=== PATIENT | male | born 1990 | race African-American/Black ===

== ENCOUNTER 2018-07-24 20:32 | Emergency (ER) | payer MEDICAID, OTHER ==
[~2018-07-24] VITALS: Ht 182.9 cm; Wt 81.6 kg
--- NOTE | 2018-07-24 20:40 | NUR ---
BIBRA78/[employer] IN CUSTODY, NEEDS OTB. NOTED HEMATOMA ABOVE R EYE. PATIENT ETOH, -LOC. AOX4. VERBALLY ABUSIVE TOWARDS STAFF. PT PLACED IN BED BY FIRE AND [employer]. PT PLACED IN CUFFS BY [employer]. PT AGITATED AND TRYING TO GET OUT OF BED AND CUFFS. [employer] AT BEDSIDE. AWAITING MD WRIGHT.
--- NOTE | 2018-07-24 20:59 | NUR ---
LEFT FOR CT SCAN.
--- NOTE | 2018-07-24 21:45 | NUR ---
PT RETURNED FROM CT SCAN
--- NOTE | 2018-07-24 22:00 | NUR ---
[facility] NOTIFIED STAFF THAT THEY WILL NOT BOOK PT AND WILL LEAVE PT IN OUR CARE. NOTIFIED MD AND CHARGE NURSE. PT PLACED IN LEFT ARM RESTRAINT AND IS RESTING IN BED.
[2018-07-24] MEDS ORDERED: TETRACAINE HCL/PF 0.5% UD 2 ML BOTTLE ONE (22:07)
--- NOTE | 2018-07-24 22:09 | NUR ---
CALLED [facility] SPOKE WITH HUI. PER HUI THERE IS ONLY PEDS AND OB BEDS AT [facility].
--- NOTE | 2018-07-24 22:11 | NUR ---
called [facility] transfer line [phone] - [phone]
--- NOTE | 2018-07-24 22:14 | NUR ---
Called [facility] and spoke to Penny and was told to fax over clinicals and she would present the case to the trauma surgeon and hopefully he would accept this pt. Fax#: [phone] Call back: [phone] ( After 2329 Penny is leaving home, call the nursing branch logistics supervisor)
--- NOTE | 2018-07-24 22:20 | NUR ---
CALLED [facility] ER SPOKE WITH MILLER, SHE STATED THEY DONT HAVE OPHTHAMOLOGY SERVICES AT THE MOMENT.
--- NOTE | 2018-07-24 22:26 | NUR ---
[facility] transfer line called - case presented - spoke to Anitra FARIA; the ER is at capacity cannot accomodate any [facility] level of care transfer
[2018-07-24] MEDS ORDERED: TETRACAINE HCL/PF 0.5% UD 2 ML BOTTLE OP ONE (22:30)
[2018-07-24] MEDS ORDERED: LATANOPROST EYE DROP 0.005% 2.5 ML BOTTLE RIGHTEYE SCH (23:00)
[2018-07-24] MEDS: acetaZOLAMIDE 250 MG TABLET PO SCH (23:00)
[2018-07-24] MEDS: TIMOLOL 0.5% SOLN OPHTH 5 ML BOTTLE OP SCH (23:00)
[2018-07-24 23:16] LABS: BASOPHILS # (AUTO) 0.1 /CMM (0.0-0.2); BASOPHILS % (AUTO) 0.6 % (0.0-2.0); EOSINOPHILS % (AUTO) 0.2 % (0.0-6.0); HEMATOCRIT 41 % (39-51); HEMOGLOBIN 13.6 g/dL (13.5-17.5); LYMPHOCYTES # (AUTO) 2.6 /CMM (0.8-4.8); LYMPHOCYTES % (AUTO) 15.7 % (20.0-44.0); MEAN CORPUSCULAR HGB CONC 34 g/dl (31.0-36.0); MEAN CORPUSCULAR VOLUME 88 fL (80-96); MONOCYTES # (AUTO) 0.8 /CMM (0.1-1.30); MONOCYTES % (AUTO) 4.8 % (2.0-12.0); NEUTROPHILS # (AUTO) 12.8 /CMM (1.8-8.9); NEUTROPHILS % (AUTO) 78.7 % (43.0-81.0); PLATELET COUNT (AUTO) 233 /CMM (150-450); RED BLOOD CELL COUNT(AUTO) 4.59 MIL/uL (4.5-6.0); WHITE BLOOD COUNT (AUTO) 16.3 K/uL (4.3-11.0)
--- NOTE | 2018-07-24 23:20 | NUR ---
The patient was seen and assessed at bedside; he is verbally abusive; he wants to go home; julien padilla called .
[2018-07-24] MEDS ORDERED: HALOPERIDOL LACTATE INJ 5 MG/ML VIAL ONE (23:25)
[2018-07-24] MEDS ORDERED: LORAZEPAM INJ 2 MG/ML VIAL ONE (23:25)
[2018-07-24] MEDS ORDERED: HALOPERIDOL LACTATE INJ 5 MG/ML VIAL IM ONE (23:30)
[2018-07-24] MEDS ORDERED: LORAZEPAM INJ 2 MG/ML VIAL IM ONE (23:30)
--- NOTE | 2018-07-24 23:34 | NUR ---
The patient was reassessed at bedside; since he states that he is going to cooperate; medication as ordered by the ER physician placed on hold; the ER physician is aware.
--- NOTE | 2018-07-25 00:05 | NUR ---
the patient becomes beligerent; Haldol and ativan given as ordered by Dr. Shearer
--- NOTE | 2018-07-25 05:05 | NUR ---
the patient is asleep; no acute distress; vitals are stable; awaiting for higher level opf care transfer
--- NOTE | 2018-07-25 06:11 | NUR ---
[facility] called - [facility] [employer] ; NO BEDS AVAILABLE ; only peds and OB beds are available
--- NOTE | 2018-07-25 06:15 | NUR ---
the patient was re-assessed at bedside- asleep; no acute distress
--- NOTE | 2018-07-25 06:56 | NUR ---
[facility] called - [phone]
--- NOTE | 2018-07-25 07:00 | NUR ---
[facility] called - [phone]- per [facility] - the patient's insurance is INACTIVE since 05/2018.
[2018-07-25] MEDS: TIMOLOL 0.5% SOLN OPHTH 5 ML BOTTLE OP SCH (07:07)
--- NOTE | 2018-07-25 07:08 | NUR ---
called Dr. Barrientos - [phone]; paged the agricultural economics teacher
--- NOTE | 2018-07-25 07:11 | NUR ---
called Dr. Dugan - [phone]; paged the compilation clerk - the same group; Gibson elena
--- NOTE | 2018-07-25 07:13 | NUR ---
the patient is alert and awake; seen and re-assessed by Dr. Gracia
--- NOTE | 2018-07-25 07:14 | NUR ---
[facility] called - [facility] ; NO BEDS AVAILABLE ; only peds and OB beds are available; advised to call back at 0900 am (CHANGE SHIFT)
[2018-07-25] MEDS: acetaZOLAMIDE 250 MG TABLET PO SCH (07:16)
--- NOTE | 2018-07-25 07:20 | NUR ---
PER MD, GAVE DIAMOX 250 MG PO X1 NOW AND TIMOLOL 1 DROP GIVEN TO RIGHT EYE GIVEN NOW.
--- NOTE | 2018-07-25 07:26 | NUR ---
Patient does not wish to proceed with medical care recommended by Dr. Rossi. Patient given information related to possible complications, up to and including permanent loss of vision, which could occur as a result of leaving the hospital at this time. Patient verbalizes understanding of risks involved due to leaving against medical advice. Patient has signed AMA form. He agrees to follow up immediately today at a tertiary care center and explains that he will go to [facility] later this morning. He was provided information for Dr. Cortes who aggreed to see him this morning in her clinic at the [facility].
[2018-07-25 07:31] VITALS: BP 107/51
== END 2018-07-25 07:33 | disposition left against medical advice (07) ==
LOC: ER 20:34
DX: S05.11XA Contusion of eyeball and orbital tissues, right eye, initial encounter (principal); F10.129 Alcohol abuse with intoxication, unspecified; R45.1 Restlessness and agitation; Y90.9 Presence of alcohol in blood, level not specified; Y08.89XA Assault by other specified means, initial encounter; Y93.89 Activity, other specified; Y92.89 Other specified places as the place of occurrence of the external cause; Y99.8 Other external cause status
CPT/HCPCS: 36415; 70450-TC; 70480-TC; 85025-TC; 85730-TC; G0480; J1630; J2060